=== PATIENT | male | born 2000 | race Asian ===

== ENCOUNTER 2021-07-11 10:13 | Outpatient (CLI) | payer BC | END 2021-07-11 10:14 | disposition home or self-care (01) | LOC: CSHWCC 10:13 | PROVIDERS: ATTEND Nurse Practitioner Family | DX: S51.002D Unspecified open wound of left elbow, subsequent encounter (principal); S81.002D Unspecified open wound, left knee, subsequent encounter; S81.001D Unspecified open wound, right knee, subsequent encounter; S41.101D Unspecified open wound of right upper arm, subsequent encounter; S41.102D Unspecified open wound of left upper arm, subsequent encounter; S71.001D Unspecified open wound, right hip, subsequent encounter | CPT/HCPCS: 97605; 99213; G0463 ==

== ENCOUNTER 2021-07-21 13:14 | Outpatient (CLI) | payer BC | END 2021-07-21 13:15 | disposition home or self-care (01) | LOC: CSHWCC 13:14 | PROVIDERS: ATTEND Nurse Practitioner Family | DX: S51.002D Unspecified open wound of left elbow, subsequent encounter (principal); S81.002D Unspecified open wound, left knee, subsequent encounter | CPT/HCPCS: 11042; 97605; 99212; G0463 ==

== ENCOUNTER 2021-07-25 15:25 | Outpatient (CLI) | payer BC | END 2021-07-25 15:26 | disposition home or self-care (01) | LOC: CSHWCC 15:25 | PROVIDERS: ATTEND Nurse Practitioner Family | DX: S51.002D Unspecified open wound of left elbow, subsequent encounter (principal); S81.002D Unspecified open wound, left knee, subsequent encounter | CPT/HCPCS: 97605; 99212; G0463 ==

== ENCOUNTER 2021-07-29 10:15 | Outpatient (CLI) | payer BC | END 2021-07-29 10:16 | disposition home or self-care (01) | LOC: CSHWCC 10:15 | PROVIDERS: ATTEND Nurse Practitioner Family | DX: S51.002D Unspecified open wound of left elbow, subsequent encounter (principal); S81.002D Unspecified open wound, left knee, subsequent encounter | CPT/HCPCS: 97605 ==

== ENCOUNTER 2021-08-01 13:39 | Outpatient (CLI) | payer BC | END 2021-08-01 13:40 | disposition home or self-care (01) | LOC: CSHWCC 13:39 | PROVIDERS: ATTEND Nurse Practitioner Family | DX: S51.002D Unspecified open wound of left elbow, subsequent encounter (principal); S81.002D Unspecified open wound, left knee, subsequent encounter | CPT/HCPCS: 99213; G0463 ==

== ENCOUNTER 2021-08-08 13:00 | Outpatient (CLI) | payer BC | END 2021-08-08 13:01 | disposition home or self-care (01) | LOC: CSHWCC 13:00 | PROVIDERS: ATTEND Nurse Practitioner Family | DX: S51.002D Unspecified open wound of left elbow, subsequent encounter (principal); S81.002D Unspecified open wound, left knee, subsequent encounter | CPT/HCPCS: 99213; G0463 ==

== ENCOUNTER 2021-08-22 13:40 | Outpatient (CLI) | payer BC | END 2021-08-22 13:41 | disposition home or self-care (01) | LOC: CSHWCC 13:40 | PROVIDERS: ATTEND Nurse Practitioner Family | DX: S51.002D Unspecified open wound of left elbow, subsequent encounter (principal); S81.002D Unspecified open wound, left knee, subsequent encounter | CPT/HCPCS: 99213; G0463 ==

== ENCOUNTER 2021-09-05 12:53 | Outpatient (CLI) | payer BC | END 2021-09-05 12:54 | disposition home or self-care (01) | LOC: CSHWCC 12:53 | PROVIDERS: ATTEND Nurse Practitioner Family | DX: S51.002D Unspecified open wound of left elbow, subsequent encounter (principal); S81.002D Unspecified open wound, left knee, subsequent encounter | CPT/HCPCS: 99212; G0463 ==